=== PATIENT | male | born 1955 | race Caucasian/White ===

== ENCOUNTER 2017-06-06 08:56 | Day surgery (SDC) | payer MEDICAID ==
[~2017-06-06] VITALS: Ht 167.6 cm; Wt 83.2 kg
[2017-06-06] MEDS ORDERED: LIPITOR80 MG PO (09:50)
[2017-06-06] MEDS ORDERED: NORVASC10 MG (09:51)
[2017-06-06] MEDS ORDERED: COREG 3.1253.125 MG PO (09:53)
[2017-06-06] MEDS ORDERED: GEMFIBROZIL600 MG PO (09:54)
[2017-06-06 10:10] LABS: HEMATOCRIT 44.8 % (42.0-54.0); HEMOGLOBIN 15.6 g/dL (13.5-17.5); MCH 31.7 pg (26.0-34.0); MCHC 34.8 g/dL (31.0-37.0); MCV 91.1 fL (80.0-100.0); MEAN PLATELET VOLUME 12.2 fL (7.4-10.4); RBC 4.92 10x6/uL (4.20-6.10); RDW 12.5 % (11.5-14.5); WBC 9.6 10x3/uL (4.8-10.8)
[2017-06-06 10:12] VITALS: BP 133/86; Ht 167.6 cm; Wt 83.2 kg
--- NOTE | 2017-06-06 13:00 | HP ---
PATIENT: KIANA DALTON MEDICAL RECORD: [id number] ACCOUNT: [id number] LOCATION:[facility] : 55 ADMISSION DATE: 06/06/17 HISTORY AND PHYSICAL EXAMINATION CHIEF COMPLAINT: Desires screening colonoscopy. HISTORY OF PRESENT ILLNESS: The patient had no symptoms. No abdominal pain. No rectal bleeding. No family history of colon cancer. PAST MEDICAL AND SURGICAL HISTORY: Appendectomy, heat stroke, hypertension, hyperlipidemia. SOCIAL HISTORY: Smoker. ALLERGIES: No known drug allergies. HOME MEDICINES: Carvedilol, Lipitor, gemfibrozil, Norvasc. PHYSICAL EXAMINATION: GENERAL: The patient does not appear acutely ill. He does not appear chronically ill. VITAL SIGNS: Reviewed. EARS: External ears appear normal. EYES: Extraocular movements are intact. NECK: Trachea is midline. CHEST: No intercostal retractions. IMPRESSION: Desires screening colonoscopy. PLAN: Screening colonoscopy. TRANSINT:[id number] Voice Confirmation ID: [id number] DOCUMENT ID: [id number] GUEVARA ANDREWS MD at 1300 CC: [id number] DICTATION DATE: 06/06/17 1151 BROADCAST CHECKER: 06/06/17 1203 REG [facility] [address] [place] [address]
--- NOTE | 2017-06-06 15:41 | NUR ---
1325 IV DC WITH CATHER TIP INTACT
--- NOTE | 2017-06-08 09:08 | OP ---
PATIENT NAME: KIANA DALTON MEDICAL RECORD: [id number] :55 LOCATION:[facility] ADMISSION DATE: SURGEON: ROSALIO ANDREWS MD DATE OF OPERATION: 06/06/2017 PREOPERATIVE DIAGNOSIS: Desires screening colonoscopy. POSTOPERATIVE DIAGNOSES: Desires screening colonoscopy with 3 sessile polyps. PROCEDURES: 1. Total colonoscopy to cecum. 2. Hot biopsy forceps polypectomy times 3. SURGEON: Rosalio Andrews MD. INSPECTOR RAW QUARTZ: None. BLOOD LOSS: Minimal. ANESTHESIA: IV sedation. COMPLICATIONS: None. The sessile polyps ranged in size from 6 mm-1.3 cm. ENDOSCOPIC COURSE: The patient was conveyed to the endoscopy suite electively on 06/06/2017. IV sedation was induced by the anesthesia staff. The patient was placed in the Hodge position. A digital rectal examination was performed. A colonoscope was inserted through the anus. It was easily advanced to the cecum. The prep was adequate. I slowly withdrew the endoscope. A combination of direct imaging as well as narrow band imaging was utilized. The pullback was greater than a 15-minute pullback. I irrigated and aspirated extensively. Three hot biopsy forceps polypectomies were performed. The specimens were removed in their entireties. A retroflexed view was obtained in the rectum. I then unretroflexed the scope and removed it under direct vision. I will see the patient in my office in 3 weeks and depending on pathology that will determine if a followup colonoscopy is necessary. TRANSINT:[id number] Voice Confirmation ID: [id number] DOCUMENT ID: [id number] ROASLIO ANDREWS MD at 0908 CC: TIA PANCHAL MD [id number] DICTATION DATE: 06/06/17 1223 [employer] AND [employer] PROFESSOR: 06/06/17 1426 [facility] 06/06/17 [place] [address]
== END 2017-06-06 13:40 | disposition home or self-care (01) ==
LOC: D.OPS 08:56
PROVIDERS: Anesthesiology
DX: Z12.11 Encounter for screening for malignant neoplasm of colon (principal); K63.5 Polyp of colon; D12.5 Benign neoplasm of sigmoid colon; D12.4 Benign neoplasm of descending colon; I10 Essential (primary) hypertension; E78.5 Hyperlipidemia, unspecified; F17.200 Nicotine dependence, unspecified, uncomplicated; Z79.899 Other long term (current) drug therapy